=== PATIENT | female | born 1960 | race African-American/Black ===

== ENCOUNTER 2020-06-24 13:44 | Inpatient (IN) | payer MEDICAID, MEDICARE ==
[~2020-06-24] VITALS: Ht 160 cm; Wt 65.1 kg
[2020-06-24] MEDS ORDERED: SODIUM CHLORIDE 0.9% 1,000 ML IVB ONE (14:04)
[2020-06-24] MEDS ORDERED: LORazepam 2MG/ML-1ML VIAL IM ONE (14:15)
[2020-06-24] MEDS ORDERED: HALOPERIDOL LACTATE 5 MG/ML INJ VIAL IM ONE (14:15)
[2020-06-24] MEDS ORDERED: diphenhdrAMINE HCL 50 MG/1 ML VL IM ONE (14:15)
[2020-06-24 16:11] LABS: Basophils # (auto) 0.1 10 ^3/uL (0-0.2); Basophils % (auto) 0.7 % (0.0-2.0); Eosinophils # (auto) 0 10 ^3/uL (0-0.8); Mean Corpuscular Hemoglobin 25.5 pg (28.0-32.0)
[2020-06-24 16:13] LABS: Eosinophils % (auto) 0.1 % (0.0-7.0); Hematocrit 39.8 % (36.0-46.0); Hemoglobin 12.6 g/dL (12.2-16.2); Lymphocytes # (auto) 0.6 10 ^3/uL (0.4-5.4); Lymphocytes % (auto) 6.4 % (10.0-50.0); Mean Corpuscular Hgb Conc. 31.6 g/dL (32.0-36.0); Mean Corpuscular Volume 80.6 fL (80.0-100.0); Monocytes # (auto) 1.1 10 ^3/uL (0-1.3); Monocytes % (auto) 10.7 % (0.0-12.0); Neutrophils # (auto) 8.2 10 ^3/uL (1.6-8.6); Neutrophils % (auto) 82.1 % (37.0-80.0); Platelet Count (auto) 187 10^3/uL (140-450); Red Blood Cells 4.93 10^6/uL (4.0-5.20); White Blood Cell 9.9 10^3/uL (4.4-10.8)
[2020-06-24 16:37] LABS: Albumin 3.6 g/dL (3.4-5.0); Anion Gap 16 (5-15); BUN/Creatinine Ratio 22.8; Blood Alcohol < 3.0 mg/dL (0-5); Blood Urea Nitrogen 63 mg/dL (7-18); Calcium 11.5 mg/dL (8.5-10.1); Carbon Dioxide 16 mmol/L (21-32); Chloride 110 mmol/L (98-107); GFR African American 23 mL/min; GFR Non-African American 19 mL/min; Glucose 95 mg/dL (74-106); Potassium 3.5 mmol/L (3.5-5.1); Sodium 142 mmol/L (136-145)
[2020-06-24] MEDS ORDERED: SODIUM CHLORIDE 0.9% 2,000 ML IV ONE (16:45)
[2020-06-24 16:46] LABS: Alanine Aminotransferase 27 U/L (13-56); Alkaline Phosphatase 95 U/L (45-117); Aspartate Aminotransferase 19 U/L (15-37); Bilirubin, Total 0.8 mg/dL (0.2-1.0); Total Protein 8.1 g/dL (6.4-8.2)
[2020-06-24] MEDS ORDERED: MORPHINE SULF INJ 2 MG/ML SYRINGE 1ML IV PRN (17:30)
[2020-06-24] MEDS ORDERED: ACETAMINOPHEN 325 MG TAB PO PRN (17:30)
[2020-06-24] MEDS ORDERED: LORazepam 0.5 MG TAB PO PRN (17:30)
[2020-06-24] MEDS ORDERED: NITROGLYCERIN 0.4 MG SL TAB SL PRN (17:30)
[2020-06-24] MEDS ORDERED: HYDROcodone-ACET 5/325MG TAB PO PRN (17:30)
[2020-06-24] MEDS ORDERED: DOCUSATE SOD 100 MG CAP PO PRN (17:30)
[2020-06-24] MEDS: SODIUM CHLORIDE 0.9% 1,000 ML IV SCH (18:15)
[2020-06-24 23:29] LABS: Urine Bacteria FEW /hpf (None Seen); Urine Blood TRACE /uL (Negative); Urine Specific Gravity 1.009 (1.001-1.035); Urine WBC 37 /hpf (0 - 5)
[2020-06-24 23:48] LABS: Alcohol, Urine < 3.0 mg/dL (0-10); Amphetamine Screen, Urine NEGATIVE (NEGATIVE); Barbiturate Scree,Urine NEGATIVE (NEGATIVE); Benzodiazephine Screen, Urine NEGATIVE (NEGATIVE); Cannabinoid Screen, Urine NEGATIVE (NEGATIVE); Cocaine Screen, Urine NEGATIVE (NEGATIVE); Opiate Scree,Urine NEGATIVE (NEGATIVE); Phencyclidine Screen, Urine NEGATIVE (NEGATIVE)
[2020-06-25 00:45] VITALS: BP 104/57
--- NOTE | 2020-06-25 00:45 | NUR ---
Telemetry admit from ENRRIQUE BLEDSOEGIULIANOBenja admitted to Telemetry unit after SBAR received. Patient oriented to HUNTER HUYNH RN primary RN, unit, room, bed, and unit policies regarding patient care and visiting hours. Patient now on continuous telemetry monitoring, tele box # 36 and telemetry reading on arrival to unit is SR 80S. Patient placed on bedside oxygen, weighed by bedscale and encouraged to call if they need something. Sitter at bedside for patient safety. All questions and concerns addressed, patient verbalized understanding. Note:
[2020-06-25 06:06] VITALS: BP 98/49
[2020-06-25] MEDS ORDERED: NITR100C6 PO (07:24)
[2020-06-25] MEDS ORDERED: TACR1CAP4 PO (07:24)
[2020-06-25] MEDS ORDERED: ATOR40TA52 PO (07:24)
[2020-06-25] MEDS ORDERED: MYCO250C4 PO (07:24)
[2020-06-25] MEDS ORDERED: METF-869 PO (07:24)
[2020-06-25] MEDS ORDERED: PRE5T PO (07:24)
[2020-06-25] MEDS ORDERED: OMEP-260 PO (07:24)
[2020-06-25] MEDS ORDERED: LATA0.0019 (07:24)
[2020-06-25] MEDS ORDERED: ONDA-188 PO (07:24)
--- NOTE | 2020-06-25 08:00 | NUR ---
OPENING SHIFT NOTE ASSUMED CARE OF PATIENT ASLEEP. PATIENT RESPONDS TO SHAKING BUT IMMEDIATELY GOES BACK TO SLEEP. BED IS IN LOWEST, LOCKED POSITION, WITH SIDE RAILS UP X2, CALL LIGHT WITHIN REACH, AND SITTER AT BEDSIDE FOR SAFETY. WILL CONTINUE TO MONITOR Q1H AND PRN.
[2020-06-25] MEDS: SODIUM CHLORIDE 0.9% 1,000 ML IV SCH ×2 (10:29→23:47)
[2020-06-25] MEDS ORDERED: HALOPERIDOL LACTATE 5 MG/ML INJ VIAL IV PRN (10:45)
[2020-06-25] MEDS ORDERED: HALOPERIDOL LACTATE 5 MG/ML INJ VIAL IM ONE (10:45)
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
[2020-06-25] MEDS ORDERED: HALOPERIDOL LACTATE 5 MG/ML INJ VIAL IM PRN ×2 (11:00→21:15)
--- NOTE | 2020-06-25 13:36 | NUR ---
AT BEDSIDE DR PICKETT AT BEDSIDE EVALUATING PATIENT.
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
[2020-06-25] MEDS: CEPHALEXIN 250 MG CAP PO SCH ×2 (17:57→23:47)
--- NOTE | 2020-06-25 21:46 | NUR ---
ATTEMPTED TO PLACE PATIENT ON TELEMETRY PATIENT STATES SHE DOES NOT NEED ANYTHING RIGHT NOW. AND REFUSES TELEMETRY TO BE PLACED BACK ON. Addendum: 06/26/20 at 06 by HUNTER HUYNH RN RN SITTER AT BEDSIDE FOR PATIENT SAFETY.
--- NOTE | 2020-06-25 22:30 | NUR ---
PATIENT SHOWERED WITHOUT ANY DIFFICULTIES
--- NOTE | 2020-06-26 | NUR ---
SITTER AT BEDSIDE PATIENT SLEEPING RESTIFULLY IN BED
[2020-06-26] MEDS: SODIUM CHLORIDE 0.9% 1,000 ML IV SCH (05:35)
[2020-06-26] MEDS: CEPHALEXIN 250 MG CAP PO SCH ×4 (05:35→21:49)
[2020-06-26 06:30] LABS: Basophils # (auto) 0 10 ^3/uL (0-0.2); Basophils % (auto) 1.1 % (0.0-2.0); Eosinophils # (auto) 0.1 10 ^3/uL (0-0.8); Hemoglobin 11.1 g/dL (12.2-16.2); Lymphocytes # (auto) 0.6 10 ^3/uL (0.4-5.4); Monocytes # (auto) 0.6 10 ^3/uL (0-1.3); Neutrophils # (auto) 2.9 10 ^3/uL (1.6-8.6); White Blood Cell 4.2 10^3/uL (4.4-10.8)
--- NOTE | 2020-06-26 06:30 | NUR ---
PATIENT COOPERATIVE WITH CARE, AM LABS DRAWN THIS AM Addendum: 06/26/20 at 0640 by HUNTER HUYNH RN RN PATIENT CONTINUES TO REFUSE TO PLACE TELEMETRY, MONITOR AT BEDSIDE AND SITTER IN THE ROOM WITH PATIENT.
[2020-06-26 06:34] LABS: Eosinophils % (auto) 1.3 % (0.0-7.0); Hematocrit 35.5 % (36.0-46.0); Lymphocytes % (auto) 14.2 % (10.0-50.0); Mean Corpuscular Hemoglobin 25.4 pg (28.0-32.0); Mean Corpuscular Hgb Conc. 31.3 g/dL (32.0-36.0); Mean Corpuscular Volume 81.4 fL (80.0-100.0); Monocytes % (auto) 13.4 % (0.0-12.0); Platelet Count (auto) 149 10^3/uL (140-450); Red Blood Cells 4.36 10^6/uL (4.0-5.20); Red Cell Distribution Width 16.7 % (11.8-14.3)
--- NOTE | 2020-06-26 06:44 | NUR ---
TELEPSYCH PLACED TELEPSYCH REQUEST PLACED THRU TELE[employer].
[2020-06-26 06:47] LABS: Chloride 121 mmol/L (98-107); Potassium 3.2 mmol/L (3.5-5.1); Sodium 150 mmol/L (136-145)
[2020-06-26 06:53] LABS: Folate (Folic Acid) 12.34 ng/mL (5.38-24)
[2020-06-26 07:01] LABS: Alanine Aminotransferase 23 U/L (13-56); Albumin 2.8 g/dL (3.4-5.0); Alkaline Phosphatase 75 U/L (45-117); Anion Gap 9 (5-15); Aspartate Aminotransferase 32 U/L (15-37); Bilirubin, Total 0.6 mg/dL (0.2-1.0); Blood Urea Nitrogen 26 mg/dL (7-18); Carbon Dioxide 20 mmol/L (21-32); GFR African American 42 mL/min; GFR Non-African American 35 mL/min; Glucose 75 mg/dL (74-106); Total Protein 6.7 g/dL (6.4-8.2)
--- NOTE | 2020-06-26 08:00 | NUR ---
PT UNCOOPERATIVE OF CARE. REFUSED TO CONSULT WITH TELE PSYCH . MD PICKETT AWARE.
[2020-06-26 09:00] VITALS: BP 108/70
[2020-06-26] MEDS ORDERED: POTASSIUM EFFERVESENT TAB 25 MEQ PO ONE (09:45)
[2020-06-26] MEDS ORDERED: TACROLIMUS 1 MG CAP PO SCH (10:00)
[2020-06-26] MEDS ORDERED: MYCOPHENOLATE 250 MG CAP PO SCH (10:00)
--- NOTE | 2020-06-26 12:40 | NUR ---
PT AGREES TO COMPLY WITH SCHEDULE MEDICATIONS. PT REFUSES TO TELE PSYCH, CT; CXR, AND STRESS TEST. PT STATES SHE WILL ATTEMPT TOMORROW. DEPTS. AWARE OF PT's WISHES.
[2020-06-26 13:00] VITALS: BP 110/64
[2020-06-26] MEDS: predniSONE 1 MG TAB PO SCH (14:04)
[2020-06-26] MEDS: PANTOPRAZOLE 40 MG TAB PO SCH (14:05)
[2020-06-26] MEDS: TACROLIMUS 1 MG CAP PO SCH ×2 (14:06→21:49)
[2020-06-26] MEDS: MYCOPHENOLATE 250 MG CAP PO SCH ×2 (14:06→21:49)
[2020-06-26] MEDS: D5W/SOD CHL 0.45%/KCL 20MEQ 1,000 ML IV SCH (15:15)
[2020-06-26 17:00] VITALS: BP 149/70
--- NOTE | 2020-06-26 20:00 | NUR ---
Opening Shift Note Assumed care of patient, awake and alert. No S/S of distress/SOB or pain. Instructed on POC and to call for assist PRN, will continue to monitor for changes Q1hr and PRN. patient has sitter at bedside for patient safety
--- NOTE | 2020-06-26 21:30 | NUR ---
NEURO UPDATED DR PARHAM ON PATIENT STATUS AND HER REFUSAL OF EXAMS AND PROCEDURES.
[2020-06-26] MEDS: ATORVASTATIN 20 MG TAB PO SCH (21:49)
--- NOTE | 2020-06-26 21:50 | NUR ---
PATIENT STATES SHE TAKES PREDNISONE ALONG WITH HER MEDICATIONS. INFORMED PATIENT THE LIST OF EVENING MEDICATIONS AND THAT THE PRIMARY PHYSICIAN ORDERS CERTAIN MEDICATIONS ONLY BECAUSE SOME MEDICATIONS ARE CONTRAINDICATED WITH CERTAIN EXAMS.
--- NOTE | 2020-06-26 22:00 | NUR ---
CALLED PATIENT SPOUSE MR SALGADO TO UPDATE HIM ON PATIENT STATUS AND PLAN OF CARE, AND REVIEW PATIENT HOME MEDICATION LIST. PATIENT SPOUSE VERBALIZES UNDERSTANDING NO QUESTIONS ASKED.
[2020-06-27] MEDS: D5W/SOD CHL 0.45%/KCL 20MEQ 1,000 ML IV SCH ×3 (01:15→21:15)
[2020-06-27] MEDS: CEPHALEXIN 250 MG CAP PO SCH ×5 (06:00→23:54)
--- NOTE | 2020-06-27 06:15 | NUR ---
PATIENT REFUSED AM MEDICATIONS AND AM LAB DRAWS INFORMED TICKET ATTENDANT TO TRY AGAIN LATER THIS MORNING.
--- NOTE | 2020-06-27 06:54 | NUR ---
TELEPSYCH TELEPSYCH REQUEST PLACED IN
--- NOTE | 2020-06-27 07:40 | NUR ---
PT IN LOW FOWLERS, AWAKE, ORIENTED. NONCOOPERATIVE OF CARE AT MOMENT. PT STATES "FIND OUT WHO MY DR. IS SO I CAN GO HOME" PT WAS EXPLAINED PLAN OF CARE. PT STATES SHE WILL WAIT FOR DR. PT UNDER DIRECT OBSERVATION.
[2020-06-27 09:00] VITALS: BP 133/82
[2020-06-27] MEDS: TACROLIMUS 1 MG CAP PO SCH ×3 (10:00→22:09)
[2020-06-27] MEDS: PANTOPRAZOLE 40 MG TAB PO SCH ×2 (10:00→11:21)
[2020-06-27] MEDS: MYCOPHENOLATE 250 MG CAP PO SCH ×3 (10:00→22:09)
[2020-06-27] MEDS: predniSONE 1 MG TAB PO SCH ×2 (10:00→11:21)
--- NOTE | 2020-06-27 11:54 | NUR ---
ELECTROENCEPHALOGRAM UNABLE TO COMPLETE EEG. PT REFUSED. XIOMARA [place].
--- NOTE | 2020-06-27 12:26 | NUR ---
DR. PARIKH IN TO SEE PT. EXPLAINING REASONING FOR ABX THERAPY. PT NOT IN AGREEMENT AND REFUSES TO COMPLY WITH IV THERAPY.
[2020-06-27] MEDS ORDERED: VANCOMYCIN PER PHARMACY 0 MG IV SCH (12:30)
[2020-06-27] MEDS ORDERED: VANCOMYCIN 1GM/250ML 250 ML IV ONE (12:30)
[2020-06-27 13:00] VITALS: BP 137/86
--- NOTE | 2020-06-27 17:30 | NUR ---
PATIENT REFUSES COVID SPECIMEN COLLECTION. PATIENT NOT COOPERATIVE OF CARE.
[2020-06-27] MEDS: ATORVASTATIN 20 MG TAB PO SCH (22:10)
--- NOTE | 2020-06-27 22:15 | NUR ---
PATIENT REFUSED LABS.
[2020-06-28] MEDS: CEPHALEXIN 250 MG CAP PO SCH ×3 (06:00→17:50)
[2020-06-28] MEDS: D5W/SOD CHL 0.45%/KCL 20MEQ 1,000 ML IV SCH ×2 (07:05→17:15)
--- NOTE | 2020-06-28 07:30 | NUR ---
RECEIVED REPORT AND CONTINUATION OF CARE,PATIENT AWAKE,ALERT,NO DISTRESS NO DISCOMFORT,PER REPORT PATIENT WAS REFUSING MEDICATIONS ON DAY SHIFT,BUT WAS OK TO TAKE MEDICATIONS LAST NIGHT,REFUSED IV START AND TO BE CONNECTED TO FRENCH FOLDING MACHINE OPERATOR,CALL LIGHT WITHIN REACH,TRUER PINION AND WHEEL AT BEDSIDE.
--- NOTE | 2020-06-28 08:00 | NUR ---
MD VISIT DR. Harjinder PARIKH HERE INFORMED THAT PER REPORT PATIENT WAS REFUSING MEDICATIONS FROM DAY SHIFT,BUT WAS OK TO TAKE MEDICATIONS LAST NIGHT,REFUSED IV START AND TO BE CONNECTED TO COMPUTER SECURITY SPECIALIST.
[2020-06-28 08:15] LABS: Basophils # (auto) 0 10 ^3/uL (0-0.2); Lymphocytes # (auto) 0.7 10 ^3/uL (0.4-5.4); Monocytes # (auto) 0.5 10 ^3/uL (0-1.3); Nucleated Red Blood Cells % 0.1 %; Platelet Count (auto) 147 10^3/uL (140-450)
[2020-06-28 08:16] LABS: Eosinophils # (auto) 0 10 ^3/uL (0-0.8); Hematocrit 34.4 % (36.0-46.0); Hemoglobin 10.8 g/dL (12.2-16.2); Lymphocytes % (auto) 16.8 % (10.0-50.0); Mean Corpuscular Hemoglobin 25.5 pg (28.0-32.0); Mean Corpuscular Hgb Conc. 31.4 g/dL (32.0-36.0); Monocytes % (auto) 13.4 % (0.0-12.0); Neutrophils # (auto) 2.8 10 ^3/uL (1.6-8.6); Neutrophils % (auto) 67.8 % (37.0-80.0); Red Blood Cells 4.25 10^6/uL (4.0-5.20); Red Cell Distribution Width 16.5 % (11.8-14.3); White Blood Cell 4.1 10^3/uL (4.4-10.8)
--- NOTE | 2020-06-28 08:25 | NUR ---
DR. Harjinder PARIKH AT BEDSIDE, PATIENT GOT IRRITATED BECAUSE MD WAS ASKING QUESTIONS,PATIENT STARTED TALKING THAT SHE HAS NO SCHIZOPHRENIA,THAT SOMETHING TOOK OVER HER BODY.ALSO CLARIFIED ORDER FOR COVID SWAB PER MD WILL CANCEL ORDER.
[2020-06-28 08:33] LABS: BUN/Creatinine Ratio 11.9
[2020-06-28] MEDS ORDERED: POTASSIUM CHL 20 Meq TABLET PO ONE (09:15)
--- NOTE | 2020-06-28 09:39 | NUR ---
PHYSICAL THERAPY P.T. AT BEDSIDE AMBULATED PATIENT, PER P.T. IT WAS VERY DIFFICULT TO INTERACT WITH PATIENT
[2020-06-28] MEDS: PANTOPRAZOLE 40 MG TAB PO SCH (11:06)
[2020-06-28] MEDS: MYCOPHENOLATE 250 MG CAP PO SCH ×2 (11:07→21:49)
[2020-06-28] MEDS: TACROLIMUS 1 MG CAP PO SCH ×2 (11:07→21:49)
[2020-06-28] MEDS: predniSONE 1 MG TAB PO SCH (11:07)
--- NOTE | 2020-06-28 11:07 | NUR ---
A.M. MEDICATIONS PATIENT VERY PLEASANT AT THIS TIME,CONVERSING AND JOKING WITH STAFF,A.M. MEDICATION WAS BEING GIVEN 1 AT A TIME REQUESTED,EXPLAIN MEDICATION INDICATION AND DOSAGES,PATIENT WAS TAKING THEM WITHOUT DIFFICULTY. THEN PATIENT STARTED REFUSING MEDICATION AND QUESTIONING DOSAGES,STATED SHE ONLY TAKES 1 TABLE,1 MG OF PREDNISONE AND NOT 3 MG OR 3 TABS,REFUSED TO TAKE HER MYCOPHENOLATE,TACROLIMUS STATED THERE IS DISCREPANCIES ON THE DOSAGES, REFUSED TO TAKE AND REFUSED TO TAKE THE REST OF HER MEDICATION.ALSO REFUSED TO HAVE IV STARTED.PATIENT NOTED TO HAVE IRREGULAR EMOTIONAL RESPONSE OR MOOD SWINGS.
--- NOTE | 2020-06-28 13:20 | NUR ---
PATIENT STILL REFUSED TO BE CONNECTED TO COCOA MILLING MACHINE OPERATOR,INFORMED DR. Harjinder PARIKH RECEIVED ORDER TO DISCONTINUE MONITOR
--- NOTE | 2020-06-28 13:46 | NUR ---
TELE PSYCH CAMERA (KULWANT) AT BEDSIDE
--- NOTE | 2020-06-28 14:11 | NUR ---
TELE PSYCH PSYCHIATRIST CALLED,OBTAINED HISTORY OF PATIENT,CONSULTATION VIA TELE PSYCH CAMERA (LINDY) STARTED
--- NOTE | 2020-06-28 14:15 | NUR ---
PATIENT SEUN SALGADO CALLED (PASSWORD PROVIDED),UPDATED WITH PLAN OF CARE AND PATIENT STATUS.
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
--- NOTE | 2020-06-28 16:34 | NUR ---
Nutrition Assessment Notes Please refer to link for full assessment notes. Est Energy needs: [id number] kcals (23-25 kcal/kgBW) Est Protein needs: 52-65 gms/day (0.8-1.0 gm/kgBW) Will continue to monitor and reassess prn. Addendum: 06/28/20 at [address] Amended: Links added.
--- NOTE | 2020-06-28 17:50 | NUR ---
PATIENT IS CALM AND COOPERATIVE AT THIS TIME,WILLINGLY TOOK HER MEDICATION WITHOUT HESITATION (KEFLEX 250 MG PO)
--- NOTE | 2020-06-28 17:55 | NUR ---
CALLED [facility] TELEMED REQUESTED DICTATED CONSULTATION,RECEIVED BY FAX,SEE REPORT
--- NOTE | 2020-06-28 18:52 | NUR ---
NO C/O PAIN, NO DISTRESS,NO DISCOMFORT.
[2020-06-28] MEDS ORDERED: HALOPERIDOL LACTATE 5 MG/ML INJ VIAL IM PRN (19:30)
[2020-06-28] MEDS: ATORVASTATIN 20 MG TAB PO SCH (21:49)
--- NOTE | 2020-06-28 21:50 | NUR ---
PT REFUSED ALL HS MEDICATION STATING, " NO PILLS. THANK YOU. NO PILLS. THANK YOU. NO PILLS. THANK YOU."
--- NOTE | 2020-06-28 21:51 | NUR ---
Patient refused vitals
--- NOTE | 2020-06-29 00:30 | NUR ---
Patient in the shower Full linen change done
[2020-06-29] MEDS: D5W/SOD CHL 0.45%/KCL 20MEQ 1,000 ML IV SCH ×2 (00:53→13:15)
[2020-06-29] MEDS: CEPHALEXIN 250 MG CAP PO SCH ×4 (05:52→18:00)
[2020-06-29] MEDS: PANTOPRAZOLE 40 MG TAB PO SCH (10:00)
[2020-06-29] MEDS: predniSONE 1 MG TAB PO SCH (10:00)
[2020-06-29] MEDS: MYCOPHENOLATE 250 MG CAP PO SCH (10:00)
[2020-06-29] MEDS: TACROLIMUS 1 MG CAP PO SCH (10:00)
[2020-06-29 13:00] VITALS: BP 120/66
--- NOTE | 2020-06-29 16:59 | NUR ---
pt refused vitals @ 0958
[2020-06-29 17:00] VITALS: BP 120/67
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
--- NOTE | 2020-06-29 19:15 | NUR ---
OPENING NOTE- NOC SHIFT PATIENT IS IN BED, BED IS LOCKED AT LOWEST POSITION. BED RAILS UP X2 , BEDSIDE TABLE WITHIN REACH, CALL LIGHT WITHIN REACH, DISCUSSED POC WITH PATIENT AND INSTRUCTED PATIENT TO CALL PRN. PATIENT RESISTS CARE. PATIENT REFUSES PHYSICAL ASSESSMENT, PATIENT STATES; "WHY DO ALL YOU WANT TO COME IN AND TOUCH ME, I DON'T NEED TO BE SEEN OR TAKIN' CARE OF, I'M PERFECTLY FINE. ALL OF YOU WANT TO COME IN AND DO THIS AND DO THAT, I DON'T NEED ANY OF IT.". PATIENT IS AGITATED. NURSE ORACLE DBA AT BEDSIDE FOR PATIENT SAFETY. WILL CONTINUE TO MONITOR Q1H AND PRN.
--- NOTE | 2020-06-29 20:00 | NUR ---
PATIENT REFUSES TO ASSESS VITALS SIGNS.
[2020-06-29] MEDS: ATORVASTATIN 20 MG TAB PO SCH (22:00)
[2020-06-29] MEDS ORDERED: POTASSIUM CHL 20 Meq TABLET PO ONE (22:15)
--- NOTE | 2020-06-29 22:15 | NUR ---
RECEIVED ORDERS FOR PO POTASSIUM AND DC D5W .45% 20 MEQ IV VIA PHONE ORDERS FROM CHENG WEAVER. READ BACK ORDERS AND CONFIRMED. CHENG WEAVER AWARE OF K+ OF 3.0 PATIENT REFUSES IV INSERTION.
--- NOTE | 2020-06-29 22:30 | NUR ---
PATIENT REFUSES MEDICATIONS AT THIS TIME. EDUCATED PATIENT REGARDING IMPORTANCE OF HER POST KIDNEY TRANSPLANT MEDICATIONS, EDUCATED PATIENT REGARDING HER POTASSIUM LEVEL AND IMPORTANCE OF POTASSIUM REPLACEMENT; PATIENT STILL REFUSES MEDICATIONS.
[2020-06-30] MEDS: TACROLIMUS 1 MG CAP PO SCH ×2 (00:19→10:59)
[2020-06-30] MEDS: MYCOPHENOLATE 250 MG CAP PO SCH ×2 (00:19→10:59)
[2020-06-30] MEDS: CEPHALEXIN 250 MG CAP PO SCH ×4 (06:00→18:00)
--- NOTE | 2020-06-30 07:40 | NUR ---
SHIFT OPENING NOTES RECEIVED PATIENT LYING IN BED COMFORTABLY AAOX4, SUSPICIOUS AND REFUSING TO BE ASSESSED AT THIS TIME. PATIENT STATED THAT SHE DOES NOT WANT ANY MALE TO CHECK ON HER BODY. NO C/O PAIN/ DISCOMFORT VOICED BY PATIENT AT THIS TIME AND PATIENT WAS IN NO DISTRESS. SITTER PRESENT AT BEDSIDE. WILL CONTINUE TO MONITOR PATIENT.
[2020-06-30 09:00] VITALS: BP 119/50
[2020-06-30] MEDS ORDERED: POTASSIUM EFFERVESENT TAB 25 MEQ PO ONE (10:00)
[2020-06-30] MEDS: PANTOPRAZOLE 40 MG TAB PO SCH (10:00)
[2020-06-30] MEDS: predniSONE 1 MG TAB PO SCH (10:00)
--- NOTE | 2020-06-30 10:00 | NUR ---
MD AT BEDSIDE DR. PICKETT WAS IN TO SEE PATIENT AND LEFT DISCHARGE ORDER. PHONED PATIENT'S SEUN SALGADO ABOUT DISCHARGE. HE NOTIFIED ME THAT HE IS OUT OF TOWN AND CAN NOT TRAVEL PHYSICAL THERAPIST PATIENT TODAY HE IS WORKING OUT OF TOWN AND WILL BE GOING HOME TOMORROW. MD NOTIFIED OF WHAT PATIENT'S TOLD ME AND HE TOLD ME TO TALK TO NUT CULLER ON SENDING PATIENT HOME.
--- NOTE | 2020-06-30 10:10 | NUR ---
PHONED VALERIO COMMERCIAL FRONT LOAD OPERATOR ABOUT DISCHARGE AND THAT WILL NOT BE ABLE TO DELIVERY TRUCK DRIVER PATIENT. SHE STATED THAT PATIENT CAN GO HOME BY [facility]. TALKED TO PATIENT ABOUT DISCHARGING HER BY [employer] BUT PATIENT STATED THAT SHE DOES NOT HAVE THE KEYS TO HER HOME SHE DID NOT BRING THEM WHEN SHE WAS ADMITTED. DR. PICEKTT MADE AWARE OF WHAT THE PATIENT SAID.
--- NOTE | 2020-06-30 12:00 | NUR ---
Refused scheduled antibiotic at this time. Will discharge patient tomorrow as patient does not have a ride to home and no keys for the house.
[2020-06-30 17:00] VITALS: BP 129/73
--- NOTE | 2020-06-30 18:55 | NUR ---
Patient to be rude, uncooperative to staff. Refused all medications that she does not take at home.
[2020-06-30] MEDS ORDERED: MYCOPHENOLATE 250 MG CAP PO SCH (22:00)
[2020-06-30] MEDS: ATORVASTATIN 20 MG TAB PO SCH (22:00)
[2020-06-30] MEDS ORDERED: POTASSIUM CHL 20 Meq TABLET PO SCH (22:00)
[2020-06-30] MEDS ORDERED: TACROLIMUS 1 MG CAP PO SCH (22:00)
[2020-07-01] MEDS: CEPHALEXIN 250 MG CAP PO SCH ×2 (05:23)
--- NOTE | 2020-07-01 07:40 | NUR ---
SHIFT OPENING NOTE RECEIVED PATIENT LYING IN BED AAOX3, BUT UNCOOPERATIVE. NO C/O PAIN/ DISCOMFORT VOICED BY PATIENT AND PATIENT WAS IN NO DISTRESS. REFUSED TO HAVE PHYSICAL ASSESSMENT DONE. SITTER PRESENT AT BEDSIDE. WILL CONTINUE TO MONITOR PATIENT.
[2020-07-01] MEDS ORDERED: TACROLIMUS 1 MG CAP PO SCH (10:00)
--- NOTE | 2020-07-01 10:05 | NUR ---
Discharge instructions and prescriptions given as ordered. Encourage to follow up with PMD as instructed. All questions and concerns addressed. Patient verbalized understanding but refused to sign discharge papers.. Medication reconciliation form completed and copy given to patient. Home medications held in Pharmacy returned to patient. Patient had no IV access. Patient taken to vehicle via wheelchair with all personal belongings, accompanied by staff and family member. No distress noted at time of departure.
== END 2020-07-01 10:05 | disposition home or self-care (01) | DRG 871 ==
LOC: ER 13:44 → EDUNIT# 13:44 → EDBD 13:44 → OVERFLOW 13:45 → CENTRAL 23:27 → TELE-CENTR 06-25 07:02 → CENTRAL 06-28 16:31
PROVIDERS: ATTEND Internal Medicine
DX: A41.9 Sepsis, unspecified organism (principal); N17.0 Acute kidney failure with tubular necrosis; N18.6 End stage renal disease; G92 Toxic encephalopathy; N39.0 Urinary tract infection, site not specified; E44.0 Moderate protein-calorie malnutrition; E87.0 Hyperosmolality and hypernatremia; T86.19 Other complication of kidney transplant; Z92.89 Personal history of other medical treatment; F20.9 Schizophrenia, unspecified; E11.22 Type 2 diabetes mellitus with diabetic chronic kidney disease; E78.5 Hyperlipidemia, unspecified; E83.52 Hypercalcemia; E86.1 Hypovolemia; E87.6 Hypokalemia; F39 Unspecified mood [affective] disorder; F41.9 Anxiety disorder, unspecified; Y83.0 Surgical operation with transplant of whole organ as the cause of abnormal reaction of the patient, or of later complication, without mention of misadventure at the time of the procedure; Z91.19 Patient's noncompliance with other medical treatment and regimen; Z82.49 Family history of ischemic heart disease and other diseases of the circulatory system; Z68.25 Body mass index [BMI] 25.0-25.9, adult; Z88.0 Allergy status to penicillin; Z91.14 Patient's other noncompliance with medication regimen
CPT/HCPCS: 36415; 36600; 80048; 80053; 80197; 80307; 80320; 81001; 82306; 82607; 82746; 82805; 83605; 83735; 83970; 84100; 84443; 84484; 85025; 87040; 87077; 87086; 87186; 93005; 96360; 96361; 96372; G0378; J7507; J7517